=== PATIENT | female | born 1955 | race African-American/Black ===

== ENCOUNTER 2022-10-09 19:03 | Inpatient (IN) | payer MEDICARE, OTHER ==
[~2022-10-09] VITALS: Ht 167.6 cm; Wt 72.6 kg
[2022-10-09] MEDS ORDERED: PROPOFOL 100 ML IV PRN (19:30)
[2022-10-09] MEDS ORDERED: SODIUM BICARBONATE SYR 50 MEQ/50 ML DISP.SYRIN IV ONE (19:30)
[2022-10-09] MEDS ORDERED: CALCIUM CHLORIDE 1,000 MG/10 ML DISP.SYRIN IV ONE (19:30)
[2022-10-09] MEDS ORDERED: NOREPINEPHRINE 8MG/250ML RTU 250 ML IV ONE ×2 (19:35→21:35)
[2022-10-09] MEDS ORDERED: PIPERACILLIN /TAZOBACTAM 3.375 G in IV D5W 50 ML IV ONE (20:00)
[2022-10-09] MEDS ORDERED: NOREPINEPHRINE 8 MG in IV NS 0.9% 242 ML IV PRN (20:00)
[2022-10-09] MEDS ORDERED: PIPERACI/TAZO 3.375GM/D5W 50ML PB IV ONE (20:19)
[2022-10-09] MEDS ORDERED: CALCIUM CHLORIDE 1,000 MG/10 ML DISP.SYRIN ONE (20:22)
[2022-10-09 20:30] LABS: BASOPHILS # (AUTO) 0.1 K/uL (0.0-0.2); BASOPHILS % (AUTO) 1.7 % (0.0-2.0); EOSINOPHILS % (AUTO) 0.1 % (0.0-6.0); HEMATOCRIT 51 % (33-45); HEMOGLOBIN 14.3 g/dL (11.5-14.8); LYMPHOCYTES # (AUTO) 0.2 K/uL (0.8-4.8); LYMPHOCYTES % (AUTO) 1.9 % (20.0-44.0); MEAN CORPUSCULAR HEMOGLOBIN 33 PG (26.0-33.0); MEAN CORPUSCULAR HGB CONC 28 g/dl (31.0-36.0); MEAN CORPUSCULAR VOLUME 116 fL (82-100); MONOCYTES # (AUTO) 0.2 K/uL (0.1-1.30); MONOCYTES % (AUTO) 3.1 % (2.0-12.0); NEUTROPHILS # (AUTO) 7.5 K/uL (1.8-8.9); NEUTROPHILS % (AUTO) 93.2 % (43.0-81.0); PLATELET COUNT (AUTO) 131 K/uL (150-450); RED BLOOD CELL COUNT(AUTO) 4.38 MIL/uL (4.0-5.2)
[2022-10-09 20:41] LABS: CALCIUM, SERUM 10.5 mg/dL (8.5-10.1); CHLORIDE 98 mmol/L (98-107); CREATININE 5.9 mg/dL (0.6-1.3); GLUCOSE 52 mg/dL (74-106); SODIUM SERUM 139 mmol/L (136-145); UREA NITROGEN, BLOOD 54 mg/dL (7-18)
[2022-10-09 20:44] LABS: INR 2.24 (0.91-1.10); PARTIAL THROMBOPLASTIN TIME 46.3 SEC (24.3-34.3); PROTHROMBIN TIME 22.5 SECS (9.2-11.1)
[2022-10-09] MEDS ORDERED: Sodium Bicarbonate 150 MEQ in IV NS 0.9% 1,000 ML IV STA (20:44)
[2022-10-09 20:47] LABS: ALANINE AMINOTRANSFERASE 36 U/L (12-78); ALBUMIN 3.2 g/dL (3.4-5.0); ALKALINE PHOSPHATASE 187 U/L (46-116); ASPARTATE AMINOTRANSFERASE 84 U/L (15-37); BILIRUBIN,DIRECT 1.4 mg/dL (0.0-0.2); BILIRUBIN,TOTAL 2.4 mg/dL (0.2-1.0); TOTAL PROTEIN, SERUM 7.2 g/dL (6.4-8.2)
[2022-10-09 20:48] LABS: CARBON DIOXIDE 6 mmol/L (21-32); POTASSIUM 6.3 mmol/L (3.5-5.1)
[2022-10-09] MEDS ORDERED: SODIUM BICARBONATE SYR 50 MEQ/50 ML DISP.SYRIN ONE (20:53)
[2022-10-09] MEDS ORDERED: DEXTROSE 50%-WATER 50 ML DISP.SYRIN IVP ONE (21:00)
[2022-10-09] MEDS ORDERED: ALBUTEROL FS 2.5 MG/3 ML VIAL.NEB NEB ONE (21:00)
[2022-10-09] MEDS ORDERED: INSULIN REGULAR, HUMAN 100 UNIT/ML 10 ML VIAL IV ONE (21:00)
[2022-10-09 21:27] LABS: LIPASE 111 U/L (73-393); MAGNESIUM 2.7 mg/dL (1.8-2.4); NT-PRO BNP > 25000 pg/mL (0-125)
[2022-10-09 21:28] LABS: PHOSPHORUS 10.1 mg/dL (2.5-4.9)
[2022-10-09 21:44] LABS: ANISOCYTOSIS 1+; BAND % (MANUAL) 6 % (0.0-5.0); LYMPHOCYTES % (MANUAL) 5 % (16-48); MONOCYTES % (MANUAL) 2 % (0-11.0); NEUTROPHILS % (MANUAL) 87 (42-76); PLATELET ESTIMATE NPD
[2022-10-09 21:46] LABS: ROULEAUX 1+
[2022-10-09] MEDS ORDERED: CT SWABBABLE VALVE TRANS SET 1 EA INFUS.SET MC ONE (21:59)
[2022-10-09] MEDS ORDERED: IOHEXOL-350 100 ML VIAL IV ONE (21:59)
[2022-10-09] MEDS ORDERED: EPINEPHRINE (1:1000) 5 MG in IV NS 0.9% 245 ML IV PRN (22:00)
[2022-10-09 22:04] LABS: LACTIC ACID 21.6 mmol/L (0.4-2.0)
[2022-10-09] MEDS ORDERED: EPINEPHRINE (1:1000) 1 MG/ML AMPUL ONE (22:04)
[2022-10-09] MEDS ORDERED: NOREPINEPHRINE 4 MG/4 ML AMPUL IV ONE ×2 (23:09→23:50)
[2022-10-09 23:15] VITALS: TEMP 98.6; O2SAT 62
[2022-10-09] MEDS ORDERED: VANCOMYCIN 1 GM in IV D5W 250 ML IV STA (23:27)
[2022-10-09] MEDS ORDERED: Z GUARD REMEDY 4 OZ OINT TP PRN (23:30)
[2022-10-09] MEDS ORDERED: ONDANSETRON HCL/PF 4 MG/2 ML VIAL IVP PRN (23:30)
[2022-10-09] MEDS ORDERED: ACETAMINOPHEN 650 MG/SUPP.RECT RC PRN (23:30)
[2022-10-09] MEDS ORDERED: PHENYLEPHRINE 100 MG in IV NS 0.9% 240 ML IV PRN (23:30)
[2022-10-09] MEDS ORDERED: NOREPINEPHRINE 32 MG in IV NS 0.9% 218 ML IV PRN (23:30)
[2022-10-09] MEDS ORDERED: PHENYLEPHRINE 10 MG/ML VIAL ONE (23:44)
[2022-10-10] VITALS: BP 90/13; O2SAT 31
[2022-10-10] MEDS ORDERED: SODIUM BICARBONATE SYR 150 MEQ in IV NS 0.9% 1,000 ML IV PRN ×2
[2022-10-10] MEDS ORDERED: CEFEPIME 1 GM in IV D5W 50 ML IV ONE ×2
[2022-10-10 00:30] VITALS: BP 64/26
[2022-10-10] MEDS ORDERED: IV NS 0.9% 250 ML IV PRN (00:30)
[2022-10-10] MEDS ORDERED: VANCOMYCIN 1 GM /D5W 250 ML PB IV ONE (00:34)
[2022-10-10 00:45] VITALS: BP 40/30
[2022-10-10] MEDS ORDERED: EPINEPHRINE (1:10,000) SYRINGE 1 MG/10 ML DISP.SYRIN IV STA (00:57)
[2022-10-10 01:00] VITALS: BP 87/14
[2022-10-10] MEDS ORDERED: VASOPRESSIN INJ 40 UNIT in IV NS 0.9% 38 ML IV PRN (01:00)
[2022-10-10 01:15] VITALS: BP 109/43
[2022-10-10 01:30] VITALS: BP 108/86
[2022-10-10] MEDS ORDERED: SODIUM BICARBONATE SYR 50 MEQ/50 ML DISP.SYRIN IV ONE (01:52)
[2022-10-10] MEDS ORDERED: EPINEPHRINE (1:1000) 1 MG/ML AMPUL SUBCUT ONE (01:52)
[2022-10-10] MEDS ORDERED: DEXTROSE 50%-WATER 50 ML DISP.SYRIN IV ONE (01:52)
[2022-10-10] MEDS ORDERED: ROCURONIUM BROMIDE 50 MG/5 ML IV ONE (01:52)
[2022-10-10] MEDS ORDERED: CALCIUM CHLORIDE 1,000 MG/10 ML DISP.SYRIN IV ONE (01:52)
[2022-10-10] MEDS ORDERED: ETOMIDATE 2 MG/ML VIAL IV ONE (01:52)
[2022-10-10] MEDS ORDERED: EPINEPHRINE (1:10,000) SYRINGE 1 MG/10 ML DISP.SYRIN IVP ONE ×2 (01:52)
[2022-10-10] MEDS ORDERED: PANTOPRAZOLE 40 MG VIAL IV SCH (09:00)
== END 2022-10-10 01:53 | DRG 208 ==
LOC: ER 19:10 → EDBD 19:10 → ICU 23:14
PROC: 5A1935Z Respiratory Ventilation, Less than 24 Consecutive Hours (ICD-10-PCS; principal; 2022-10-09)
PROC: 0BH17EZ Insertion of Endotracheal Airway into Trachea, Via Natural or Artificial Opening (ICD-10-PCS; 2022-10-09)
PROC: 07HT33Z Insertion of Infusion Device into Bone Marrow, Percutaneous Approach (ICD-10-PCS; 2022-10-09)
PROC: 06HM33Z Insertion of Infusion Device into Right Femoral Vein, Percutaneous Approach (ICD-10-PCS; 2022-10-09)
PROC: B54BZZA Ultrasonography of Right Lower Extremity Veins, Guidance (ICD-10-PCS; 2022-10-09)
PROC: 5A12012 Performance of Cardiac Output, Single, Manual (ICD-10-PCS; 2022-10-10)
DX: J96.01 Acute respiratory failure with hypoxia (principal); N18.6 End stage renal disease; K55.9 Vascular disorder of intestine, unspecified; E87.20 Acidosis, unspecified; I13.2 Hypertensive heart and chronic kidney disease with heart failure and with stage 5 chronic kidney disease, or end stage renal disease; D68.9 Coagulation defect, unspecified; R57.9 Shock, unspecified; E83.39 Other disorders of phosphorus metabolism; E87.5 Hyperkalemia; I50.9 Heart failure, unspecified; Z99.2 Dependence on renal dialysis; E80.6 Other disorders of bilirubin metabolism; I46.9 Cardiac arrest, cause unspecified; Z85.51 Personal history of malignant neoplasm of bladder; E11.22 Type 2 diabetes mellitus with diabetic chronic kidney disease; Z95.810 Presence of automatic (implantable) cardiac defibrillator
CPT/HCPCS: 36415; 36600; 71045-TC; 80048-TC; 80076-TC; 82803-TC; 82962-TC; 83605-TC; 83690-TC; 83735-TC; 83880; 84100-TC; 84484-TC; 85025-TC; 85730-TC; 87040-TC; 92950-TC; 94002-TC; 94799-TC; 99082-TC; A4223; C9803; G0378; J0171; J0692; J1815; J2370; J2543; J3370; J3490; J7030; J7050; J7060; Q9967